=== PATIENT | male | born 1950 | race Caucasian/White ===

== ENCOUNTER 2024-04-13 20:00 | Outpatient (OUT) | payer MEDICARE, SELFPAY | END 2024-04-13 20:01 | disposition home or self-care (01) | LOC: SLEEP 04-15 07:55 | PROVIDERS: PCP Nurse Practitioner Adult Health; Visit Provider Nurse Practitioner Adult Health | DX: G47.33 Obstructive sleep apnea (adult) (pediatric) (principal); R41.89 Other symptoms and signs involving cognitive functions and awareness; G47.10 Hypersomnia, unspecified; G47.30 Sleep apnea, unspecified | CPT/HCPCS: 95810 ==

== ENCOUNTER 2024-06-04 19:41 | Outpatient (OUT) | payer MEDICARE, SELFPAY ==
--- OUTSIDE RECORDS SUMMARY | 2024-06-04 19:44 | XMS_ITS | CCD ---
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 Name Role Phone Shelly Finch MD Primary Care Provider IVY PARSONS I Attending Unavailable SHELLY FINCH Referring Unavailable SHELLY FINCH Primary Care Unavailable IVY PARSONS I Referring Unavailable SHELLY FINCH Primary Care Unavailable Shelly Finch MD Primary Care Provider JOSE CASEY Attending Unavailable RUSLAN VILLATORO Attending Unavailab RUSLAN Farris Referring Unavailab RUSLAN Farris Attending Unavailab RUSLAN Farris Attending Unavailab EMILY Mercedes Attending Unavailable ESTEFANY PRADO Attending Unavailable EMILY SUN Attending Unavailable EMILY SUN Referring Unavailable NELL BOYER Attending Unavailable Allergies Allergy Classification Reported Allergen(s) Allergy Type Date of Onset Reaction(s) Facility (4 sources) Colchicine; Translations: [COLCHICINE] Drug Allergy 08-05-2020 [facility] (6 sources) Colchicine Drug Allergy 01-16-2023 [facility] Work Phone: Medications Current Medications Medication Drug Class(es) Dates Sig (Normalized) Sig (Original) acetaminophen 500 mg oral tablet (2 sources) Start: 08-06-2020 take 2 tablets by mouth every eight hours acetaminophen (TYLENOL) 500 mg tablet Take 2 tablets (1,000 mg total) by mouth every 8 (eight) hours. 30 tablet 0 08/06/2020 Active aspirin 81 mg delayed release oral tablet (6 sources) Platelet Aggregation Inhibitor, Nonsteroidal Anti-inflammatory Drug take 1 tablet by mouth in the morning aspirin 81 MG EC tablet Take 81 mg by mouth in the morning. 0 Active cholecalciferol 0.125 mg oral tablet (2 sources) Vitamin D take 1 tablet by mouth in the morning cholecalciferol, vitamin D3, 5,000 units tablet Take 1 tablet (5,000 Units total) by mouth in the morning. 0 Active fluticasone propionate 0.05 mg/actuat metered dose nasal spray (8 sources) Corticosteroid take 1 spray(s) nasal route in the morning fluticasone (Flonase) 50 MCG/ACT nasal spray Administer 1 spray into affected nostril(s) in the morning. 0 Active take 1 spray(s) nasa l route in the morning fluticasone propionate (FLONASE) 50 mcg/actuation nasal spray Administer 1 spray into each nostril in the morning. 0 Active 1 ml guselkumab 100 mg/ml prefilled syringe (8 sources) Interleukin-23 Antagonist Start: 03-06-2023 Tremfya 100 MG/ML injection Indications: Psoriasis vulgaris (CMS/HCC) INJECT 100MG UNDER THE SKIN AT WEEK 0, WEEK 4, AND EVERY 8 WEEKS THEREAFTER 0.28 mL 0 03/06/2023 Active Start: 11-04-2022 guselkumab (TR EMFYA) 100 mg/mL syringe 1 mL Subcutaneous at week , week 4, and every 8 weeks thereafter 0 11/04/2022 Active ammonium lactate 120 mg/ml topical lotion (4 sources) ammonium lactate (Lac-Hydrin) 12 % lotion 1 Application every 12 (twelve) hours 0 Active lidocaine 0.05 mg/mg medicated patch (2 sources) Antiarrhythmic, Amide Local Anesthetic Start: 08-06-20 apply 1 dose transdermal route once daily, then apply 1 dose transdermal route every twelve hours lidocaine (LIDODERM) 5 % Place 1 patch on the skin daily. Remove & Discard patch within 12 hours or as directed by MD 30 patch 0 08/06/2020 Active losartan potassium 25 mg oral tablet (8 sources) Angiotensin 2 Receptor Hieu take 1 tablet by mouth in the morning losartan (Cozaar) 25 MG tablet Take 25 mg by mouth in the morning. 0 Active metFORMIN hydrochloride 500 mg oral tablet (8 sources) Biguanide take 1 tablet by mouth in the morning metFORMIN (Glucophage) 500 MG tablet Take 500 mg by mouth in the morning and 500 mg in the evening. 0 Active 24 hr mirabegron 50 mg extended release oral tablet (6 sources) beta3-Adrenergic Agonist Start: 03-08-20 take 1 tablet by mouth every twenty-four hours in the morning mirabegron (MYRBETRIQ) 50 mg tablet extended release 24 hr Take 1 tablet (50 mg total) by mouth in the morning. 30 tablet 5 03/08/2023 Active mirabegron ER (M yrbetriq) 50 MG 24 hr tablet 1 (one) time each day at the same time 0 Active montelukast 10 mg oral tablet (8 sources) Leukotriene Receptor Antagonist take 1 tablet by mouth at bedtime montelukast (Singulair) 10 MG tablet Take 10 mg by mouth at bedtime. 0 Active nitrofurantoin, macrocrystals 25 mg / nitrofurantoin, monohydrate 75 mg oral capsule (1 source) Nitrofuran Antibacterial Start: End: take 1 capsule by mouth in the morning nitrofurantoin, macrocrystal-monohyd rate, (Macrobid) 100 MG capsule Indications: Acute cystitis with hematuria Take 1 capsule (100 mg) by mouth in the morning and 1 capsule (100 mg) before bedtime. Do all this for 7 days. 14 capsule 0 10/12/2023 10/19/2023 Active rivaroxaban 20 mg oral tablet (8 sources) Factor Xa Inhibitor take 1 tablet by mouth in the morning rivaroxaban (Xarelto) 20 MG tablet Take 20 mg by mouth in the morning. 0 Active rosuvastatin calcium 40 mg oral tablet (8 sources) HMG-CoA Reductase Inhibitor Start: End: take 1 tablet by mouth once daily rosuvastatin (Crestor) 40 MG tablet Indications: Mixed hyperlipidemia (CMS/HCC) Take 1 tablet (40 mg) by mouth 1 (one) time each day at the same time 90 tablet 0 10/11/2023 01/09/2024 Active sulfamethoxazole 800 mg / trimethoprim 160 mg oral tablet (1 source) Dihydrofolate Reductase Inhibitor Antibacterial, Sulfonamide Antimicrobial Start: End: take 1 tablet by mouth once in the morning sulfamethoxazole-tri methoprim (BACTRIM DS) 800-160 mg per tablet Take 1 tablet by mouth in the morning and 1 tablet before bedtime. Do all this for 7 days. 14 tablet 0 09/06/2023 09/13/2023 Active triamcinolone acetonide 0.80926 mg/mg topical ointment (6 sources) Corticosteroid triamcinolone (Kenalog) 0.025 % ointment 1 application every 12 (twelve) hours. 0 Active Completed/Discontinued Medications Medication Drug Class(es) Dates Sig (Normalized) Sig (Original) Tapinarof (Vtama) 1 % cream (4 sources) End: 10-10-2023 Tapinarof (Vtama) 1 % cream Apply topically. 0 10/10/2023 Discontinued Tapinarof (Vtama ) 1 % cream Apply topically. 0 Active Problems Active Problems Problem Classification Problem Date Documented Da te Episodic/Chronic Cardiac dysrhythmias (8 sources) Paroxysmal atrial fibrillation; Translations: [Paroxysmal atrial fibrillation] Onset: 03-02-2023 03-02-2023 Chronic Diabetes mellitus without complication (8 sources) Type 2 diabetes mellitus without complication; Translations: [Type 2 diabetes mellitus without complications] Onset: 03-02-2023 03-02-2023 Chronic Disorders of lipid metabolism (8 sources) Mixed hyperlipidemia; Translations: [Mixed hyperlipidemia] Onset: 03-02-2023 03-02-2023 Chronic Genitourinary symptoms and ill-defined conditions (13 sources) Urinary incontinence; Translations: [Unspecified urinary incontinence] Onset: 10-19-2022 03-08-2023 Chronic Immunizations and screening for infectious disease (4 sources) Patient encounter status; Translations: [Encounter for immunization] 10-10-2023 Episodic Other diseases of kidney and ureters (2 sources) Renal mass; Translations: [Other specified disorders of kidney and ureter] Onset: 10-19-2022 11-29-2022 Chronic Other inflammatory condition of skin (6 sources) Plaque psoriasis; Translations: [Psoriasis vulgaris] Onset: 03-02-2023 03-02-2023 Chronic Other inflammatory condition of skin (6 sources) Psoriasis vulgaris; Translations: [Psoriasis vulgaris] Onset: 03-02-2023 03-02-2023 Chronic Other inflammatory condition of skin (8 sources) Psoriasis; Translations: [Psoriasis, unspecified] Onset: 03-02-2023 3 Chronic Other inflammatory condition of skin (6 sources) Psoriatic arthritis; Translations: [Arthropathic psoriasis, unspecified] Onset: 03-02-2023 03-02-2023 Chronic Residual codes; unclassified (1 source) Confusional state; Translations: [Disorientation, unspecified] 10-12-2023 Episodic Rheumatoid arthritis and related disease (8 sources) Rheumatoid arthritis; Translations: [Rheumatoid arthritis, unspecified] Onset: 03-02-2023 03-02-2023 Chronic Urinary tract infections (2 sources) Urinary tract infectious disease; Translations: [Urinary tract infection, site not specified] 09-06-2023 Episodic Past or Other Problems Problem Classification Problem Date Documented Da te Episodic/Chronic Genitourinary symptoms and ill-defined conditions (2 sources) Chase hematuria; Translations: [Gross hematuria] Onset: 12-08-2022 12-08-2022 Episodic Mood disorders (4 sources) Mood disorders Onset: 10-10-2023 10-10-2023 Other connective tissue disease (6 sources) Recurrent falls ; Translations: [Repeated falls] Onset: 03-02-2023 03-02-2023 Episodic Other fractures (2 sources) Closed fracture of multiple left ribs; Translations: [Multiple fractures of ribs, left side, initial encounter for closed fracture] Onset: 08-05-2020 08-05-2020 Episodic Other gastrointestinal disorders (8 sources) Slow transit constipation; Translations: [Slow transit constipation] Onset: 03-02-2023 03-02-2023 Episodic Other male genital disorders (2 sources) Scrotal mass; Translations: [Other specified disorders of the male genital organs] Onset: 10-19-2022 03-08-2023 Episodic Results Test Name Value Interpretation Reference Range Facil ity MR BRAIN WO CONTRASTon 04-15 MR BRAIN WO CONTRAST EXAM: MR BRAIN WO CONTRAST History: cognitive impairment Technique: Multiplanar multisequence MRI of the brain was performed without contrast. Comparison: CT brain 04/06/2024 Findings: Areas of hyperintense T2/FLAIR signal within the bilateral supratentorial white matter are nonspecific but are most likely due to chronic small vessel ischemic changes in a patient of this age. Prominence of the sulci and ventricles compatible with moderate generalized parenchymal volume loss. No acute hemorrhage, mass, mass effect, midline shift, or abnormal extra-axial fluid collection. Midline structures are within normal limits. The posterior fossa is within normal limits. There is no diffusion restriction. No susceptibility artifact is identified on the gradient echo sequence. The major intracranial vascular flow voids are maintained. Cranial nerve 7/8 complexes appear grossly unremarkable. Mild paranasal sinus mucosal thickening. The bilateral mastoid air cells are clear. IMPRESSION: No acute intracranial process. Generalized parenchymal volume loss and nonspecific white matter findings most compatible with chronic small vessel ischemic changes in a patient of this age. ELECTRONICALLY SIGNED BY: Jason Monique, DO Normal Not Available Urinalysis macro (dipstick) panel (U)on 10-12-2023 Bilirubin, UA Negative Negative - 4(70) +++ mg/dL [facility] Blood, UA Positive Negative - 50 Mina/mcL [facility] Clarity, UA Cloudy [facility] re Color, UA [place] e Glucose, UA Negative Negative - 1999(110) ++++ mg/dL [facility] Interpretation and review of laboratory results Abnormal [facility] Ketones, UA Negative Negative - 160(16) ++++ mg/dL [facility] Leukocytes, UA Positive Negative - 500+++ Anna/mcL [facility] Nitrite, UA Positive Negative - Positive [facility] pH, UA 5.0 5 - 9 [facility] e Protein, UA Trace Negative - 1999(20) ++++ mg/dL [facility] Spec Grav, UA 1.025 1 - 1.03 [facility] Urobilinogen, UA 0.2 0.2 - 12 mg/dL [facility] Laboratory - Chemistry and C hemistry - challengeon 10-11-2023 Albumin [Mass/Vol] 4.3 g/dL 3.6 - 5.1 g/dL [facility] Albumin/Globulin [Mass ratio] 1.5 {ratio} [facility] ALP [Catalytic activity/Vol] 68 U/L 35 - 144 U/L [facility] ALT [Catalytic activity/Vol] 13 U/L 9 - 46 U/L [facility] AST [Catalytic activity/Vol] 16 U/L 10 - 35 U/L [facility] Bilirubin [Mass/Vol] 0.6 mg/dL 0.2 - 1.2 mg/dL [facility] Calcium [Mass/Vol] 9.7 mg/dL 8.6 - 10. 3 mg/dL [facility] Chloride [Moles/Vol] 104 mmol/L 98 - 110 mmol/L [facility] CO2 [Moles/Vol] 25 mmol/L 20 - 32 mmol/L [facility] Creatinine [Mass/Vol] 1.05 mg/dL 0.70 - 1.28 mg/dL [facility] GFR/1.73 sq M.predicted among non-blacks MDRD (S/P/Bld) [Vol rate/Area] 74 mL/min/{1.73_m2} > OR = 60 mL/min/1.73m2 [facility] Globulin (S) [Mass/Vol] 2.9 g/dL [facility] Glucose [Mass/Vol] 84 mg/dL 65 - 99 mg/dL [facility] Comment on above: Fasting reference interval Potassium [Moles/Vol] 4.3 mmol/L 3.5 - 5.3 mmol/L [facility] Protein [Mass/Vol] 7.2 g/dL 6.1 - 8.1 g/dL [facility] Sodium [Moles/Vol] 141 mmol/L 135 - 146 mmol/L [facility] TSH Qn 1.79 m[IU]/L [facility] Urea nitrogen [Mass/Vol] 15 mg/dL 7 - 25 mg/dL [facility] Urea nitrogen/Creatinine [Mass ratio] SEE NOTE: [facility] Comment on above: Not Reported: BUN an d Creatinine are within reference range. Prostate specific Ag [Mass/Vol] 4.77 ng/mL High < OR = 4.00 [facility] Comment on above: The total PSA value from this assay system is standardized against the WHO standard. The test result will be approximately 20% lower when compared to the equimolar-standardized total PSA (Kriss Whitefield). Comparison of serial PSA results should be interpreted with this fact in mind. This test was performed using the Siemens chemiluminescent method. Values obtained from different assay methods cannot be used interchangeably. PSA levels, regardless of value, should not be interpreted as absolute evidence of the presence or absence of disease. Laboratory - Hematology and Cell countson 10-11-2023 HbA1c (Bld) [Mass fraction] 5.7 % High [facility] Comment on above: For someone without known diabetes, a hemoglobin A1c value between 5.7% and 6.4% is consistent with prediabetes and should be confirmed with a follow-up test. For someone with known diabetes, a value <7% indicates that their diabetes is well controlled. A1c targets should be individualized based on duration of diabetes, age, comorbid conditions, and other considerations. This assay result is consistent with an increased risk of diabetes. Currently, no consensus exists regarding use of hemoglobin A1c for diagnosis of diabetes for children. HbA1c performed on Susy platform. Effective 08/15/23 a change in test platforms may have shifted HbA1c results compared to historical results. Lipid 1996 panelon 4 Cholesterol [Mass/Vol] 216 mg/dL High [facility] - 200 mg/dL [facility] Cholesterol in HDL [Mass/Vol] 33 mg/dL Low > OR = 40 [facility] Cholesterol in LDL [Mass/Vol] 155 mg/dL High mg/dL (calc) [facility] Comment on above: Reference range: <10 0 Desirable range <100 mg/dL for primary prevention; <70 mg/dL for patients with CHD or diabetic patients with > or = 2 CHD risk factors. LDL-C is now calculated using the Luis-Hinojosa calculation, which is a validated novel method providing better accuracy than the Friedewald equation in the estimation of LDL-C. Luis SS et al. RICCO. 2013;310(19): 9734-2575 (http://education.Root4.CloudSponge/faq/VKW549) Cholesterol non HDL [Mass/Vol] 183 mg/dL High [facility] Comment on above: For patients with di abetes plus 1 major ASCVD risk factor, treating to a non-HDL-C goal of <100 mg/dL (LDL-C of <70 mg/dL) is considered a therapeutic option. Cholesterol.total/Ch olesterol in HDL [Mass ratio] 6.5 {ratio} High [facility] Triglyceride [Mass/Vol] 149 mg/dL [facility] - 150 mg/dL [facility] Microalbumin/Creatinine rati o panel (U)on 10-11-2023 Albumin DL <= 20 mg/L (U) [Mass/Vol] 2.1 mg/dL See Note: [facility] are Comment on above: Reference Range: Reference Range Not established Albumin/Creatinine (U) [Mass ratio] 13 [facility] Comment on above: The ADA defines abnormalities in albumin excretion as follows: Albuminuria Category Result (mcg/mg creatinine) Normal to Mildly increased <30 Moderately increased 30-299 Severely increased > OR = 300 The ADA recommends that at least two of three specimens collected within a 3-6 month period be abnormal before considering a patient to be within a diagnostic category. Creatinine (U) [Mass/Vol] 157 mg/dL 20 - 320 mg/dL [facility] SPLIT 10/10/2023 FROM [id number] [employer] Organization Information Site ID: QPT Name: [facility] [employer] [facility] Address: [address] [place] [address], [address] [place] [address] Director: Charlie Wilde MD [facility] [facility] No Panel Informationon 10-11 Interpretation and review of laboratory results Abnormal [facility] PATIENT UNABLE TO VOID; ADVISED TO RETURN FOR COLLECTION. [employer] Organization Information Site ID: QPT Name: [employer] [facility] Address: [address] [place] [address], [address] [place] [address] Director: Charlie Wilde MD [facility] [employer] e POCT Urinalysis Auto, W/O Mi croscopyon 09-06-2023 External Poct Urine Blood Negative [facility] External Poct Urine Glucose Negative [facility] External Poct Urine Ketones Negative [facility] External Poct Urine Leukocyte Esterase Moderate [facility] External Poct Urine Nitrite Positive [facility] External Poct Urine Ph 7.0 [facility] External Poct Urine Protein Trace [facility] URINE CULTUREon 09-06-2023 Bacteria identified Cx Nom (U) CULTURE RESULTS >100,000 ORGANISMS/mL ESCHERICHIA COLI Organism: ESCHERICHIA COLI Antibiotic Interpretation GELY Status AMPICILLIN S <=2 F AMP/SULBACTAM S <=2/1 F CEFAZOLIN S <=4 F CEFTRIAXONE S <=1 F CIPROFLOXACIN S <=0.25 F GENTAMICIN S <=1 F LEVOFLOXACIN S <=0.12 F NITROFURANTOIN S <=16 F PIPERACIL/TAZOBACTAM S <=4 F TOBRAMYCIN S <=1 F TRIMETH/SULFAMETHOXA ZOLE S <=/19 F Susceptible [facility] Comment on above: Performed By: #### 6 30-4 #### [facility] ([id number]) [address] [place] [address] Microalbumin (with Creat)on 01-27-2022 mALB <1.[address] [facility] Comment on above: Result Comment: Unab le to calculate mALB/Crea ratio, mALB is <1.2 mg/dL mALB reference range not established. Performed By: #### m ALBC #### [facility] [address] [place], [place] [id number] UCREA 34 mg/dL Low 39-259 [facility] Comment on above: Performed By: #### m ALBC #### [facility] [address] [place], [place] [id number] Vital Signs Date Time Vital Sign Value Performing Clinician Leanna dunaway 10-10-2023 12:26-0500 Diastolic blood pressure 68 mm[Hg] Jose Casey JEWELRY ENAMELER Work Phone: [facility] 10-10-2023 12:26-0500 Systolic blood pressure 140 mm[Hg] Jose Casey JEWELRY ENAMELER Work Phone: [facility] 10-10-2023 11:59-0500 Body height 175.3 cm Jose Casey JEWELRY ENAMELER Work Phone: [facility] 10-10-2023 11:59-0500 Body mass index (BMI) [Ratio] 38.16 kg/m2 Jose Casey JEWELRY ENAMELER Work Phone: [facility] 10-10-2023 11:59-0500 Body weight 117.21 kg Jose Casey JEWELRY ENAMELER Work Phone: [facility] 10-10-2023 11:59-0500 Heart rate 88 /min Jose Casey JEWELRY ENAMELER Work Phone: [facility] 10-10-2023 11:59-0500 SaO2% (BldA) [Mass fraction] 96 % Jose Casey JEWELRY ENAMELER Work Phone: [facility] 09-06-2023 10:22-0500 Body height 177.8 cm Ivy PEREZ Work Phone: [employer] 09-06-2023 10:22-0500 Body mass index (BMI) [Ratio] 34.87 kg/m2 Ivy PEREZ Work Phone: [employer] 09-06-2023 10:22-0500 Body weight 110.22 kg [facility] 09-06-2023 10:22-0500 Diastolic blood pressure 75 mm[Hg] Ivy PEREZ Work Phone: [employer] 09-06-2023 10:22-0500 Heart rate 75 /min Ivy PEREZ Work Phone: [employer] 09-06-2023 10:22-0500 Systolic blood pressure 157 mm[Hg] Ivy PEREZ [facility] Phone: [facility] Encounters Encounter Date Encounter Type Care Provider Facility Start: 05-09-2024 End: 05-09-2024 ambulatory NELL BOYER Not Available Start: 04-15-2024 End: 04-15-2024 ambulatory EMILY C WINDNAGEL Not Available Start: 04-03-2024 End: 04-03-2024 ambulatory EMILY C WINDNAGEL Not Available Start: 04-02-2024 End: 04-02-2024 ambulatory JOSE MCDONALDPFER Not Available Start: 03-11-2024 End: 03-11-2024 ambulatory ESTEFANY PRADO Not Available Start: 03-07-2024 End: 03-07-2024 ambulatory EMILY C WINDNAGEL Not Available Start: 02-20-2024 End: 02-20-2024 ambulatory RUSLAN A HACKENBURG Not Available Start: 01-12-2024 End: 01-12-2024 ambulatory RUSLAN A HACKENBURG Not Available Start: 01-05-2024 End: 01-05-2024 ambulatory RUSLAN A HACKENBURG Not Available Start: 01-02-2024 End: 01-02-2024 ambulatory RUSLAN A HACKENBURG Not Available Start: 10-12-2023 End: 10-12-2023 Orders Only Ruslan Gilman Irving JEWELRY ENAMELER Work Phone: [facility] Comment on above: Acute cystitis with hematuria (Primary Dx) Start: 10-12-2023 End: 10-12-2023 Patient encounter procedure [facility] Comment on above: Confusion Start: 10-10-2023 Bamboo flowsheet Jose Casey JEWELRY ENAMELER Work Phone: [facility] Start: 10-10-2023 Bamboo flowsheet Jose Casey JEWELRY ENAMELER Work Phone: [facility] Start: 10-10-2023 End: 10-10-2023 Patient encounter procedure Jose Carmela JEWELRY ENAMELER Work Phone: [facility] Comment on above: Encounter for wellne ss examination (Primary Dx); Controlled type 2 diabetes mellitus without complication, without long-term current use of insulin (CMS/HCC); Functional urinary incontinence; Constipation by delayed colonic transit; Mixed hyperlipidemia (CMS/HCC); Paroxysmal atrial fibrillation (CMS/HCC); Screening PSA (prostate specific antigen); Psoriasis (CMS/HCC); Rheumatoid arthritis, involving unspecified site, unspecified whether rheumatoid factor present (CMS/HCC); Encounter for immunization Start: 10-10-2023 End: 10-10-2023 Patient encounter status Jose Carmela JEWELRY ENAMELER Work Phone: [facility] Work Phone: Start: 10-10-2023 End: 10-10-2023 ambulatory JOSE CARMELA Not Available Start: 10-09-2023 Chart abstracting Jose jo JEWELRY ENAMELER Work Phone: [facility] Start: 09-06-2023 End: 09-07-2023 ambulatory IVY PARSONS [facility] Start: 09-06-2023 End: 09-06-2023 ambulatory IVY PARSONS [facility] Start: 09-06-2023 End: 09-06-2023 Office outpatient visit 25 minutes Ivy Parsons PA Work Phone: [facility] Comment on above: Urinary incontinence , unspecified type (Primary Dx); Urinary tract infection without hematuria, site unspecified Start: 09-05-2023 Orders Only Ivy louise PA Work Phone: [facility] Start: 08-15-2023 End: 08-15-2023 ambulatory JOSE MCDONALDCHARLOTTE Not Available Procedures Date Procedure Procedure Detail Performing Clinician Start: 10-12-2023 Urnls dip stick/tabl et rgnt non-auto w/o micrscp Ruslan Villatoro JEWELRY ENAMELER Work Phone: Start: 10-10-2023 Urine albumin quantitative Jose Mcdonaldcharlotte JEWELRY ENAMELER Work Phone: Start: 10-10-2023 End: 10-10-2023 Comprehensive metabolic panel Jose Carmela JEWELRY ENAMELER Work Phone: Start: 10-10-2023 Lipid panel Jose Mcdonaldmaddie chaudhry JEWELRY ENAMELER Work Phone: Start: 10-10-2023 TSH W/REFLEX TO FT4 Luisa Mcdonaldcharlotte JEWELRY ENAMELER Work Phone: Start: 09-06-2023 Follow-up visit Follow-up ZBIGNIEW PARSONS Start: 09-06-2023 Urnls dip stick/tabl et rgnt auto w/o microscopy Ivy Parsons PA Work Phone: Start: 10-18-2012 Colonoscopy Jose Carissa chaudhry JEWELRY ENAMELER Work Phone: Plan of Treatment Date Care Activity Detail Author Start: 10-10-2024 Medicare Annual Well ness (AWV) Medicare Annual Wellness (AWV) [facility] Start: 10-10-2024 Urine screening for protein Diabetes: Urine Protein Screening [facility] Start: 09-06-2024 Adult BMI Screening Adult BMI Screen ing [facility] Start: 09-06-2024 Tobacco Screening Tobacco Screening [facility] Start: 03-08-2024 Adult BMI Screening Adult BMI Screen ing [facility] Start: 03-08-2024 Tobacco Screening Tobacco Screening [facility] Start: 03-07-2024 End: 03-07-2024 Patient encounter procedure 03/07/2024 9:20 AM EDT Office Visit [facility] [address] [place] [id number] Nell Boyer APRN-[employer] NANNY [address] [place] [address] [facility] Start: 01-08-2024 Hemoglobin A1c measurement Diabetes: Hemoglobin A1C [facility] Start: 12-05-2023 End: 12-05-2023 Patient encounter procedure 12/05/2023 11:15 AM EDT Office Visit [facility] [address] [place] [address] [place] [address] Jarod Pedersen MD [address] [place] [address] [phone] [facility] Start: 10-12-2023 End: 10-12-2024 Bacteria identified in Urine by Culture Urine culture (clean catch) Microbiology Routine Confusion Expected: 10/12/2023 (Approximate), Expires: 10/12/2024 [facility] Work Phone: Comment on above: Expected: 10/12/2023 (Approximate), Expires: 10/12/2024 Start: 10-10-2023 End: 10-10-2023 Patient encounter procedure [facility] Comment on above: Arrived Start: 09-06-2023 End: 09-06-2023 Patient encounter procedure 09/06/2023 10:30 AM EST Office Visit [facility] [address] [place] [address] [place] [address] Ivy Parsons PA [address] [place] [address] [phone] [facility] Start: 04-28-2023 COVID-19 Vaccine () COVID-19 Vaccine () [facility] Start: 04-28-2023 Influenza vaccination [facility] Start: 01-27-2023 Urine screening for protein Diabetes: Urine Protein Screening [facility] Start: 11-30-2022 Hemoglobin A1c measurement Diabetes: Hemoglobin A1C [facility] Start: 10-18-2022 Screening for malign ant neoplasm of colon [facility] Start: 2013 Fall Risk Screening Fall Risk Screen ing [facility] Start: 1998 Administration of varicella zoster vaccine Zoster (Shingles) Vaccine (1 of 2) [facility] Start: 1967 DTaP,Tdap and Td Vac cines (1 - Tdap) DTaP,Tdap and Td Vaccines (1 - Tdap) [facility] Start: 1966 Adult BMI Follow Up Plan Adult BMI Follow Up Plan [facility] Start: 1960 Depression Screening Depression Scre ening [facility] Start: 1958 Glaucoma screening Diabetes: R etinopathy Screening [facility] Start: 1954 Pneumococcal Vaccine : 65+ Years (1 - PCV) Pneumococcal Vaccine: 65+ Years (1 - PCV) [facility] Start: 1948 Medicare Annual Well ness (AWV) Medicare Annual Wellness (AWV) [facility] Start: 1948 Medicare Annual Well ness Visit Medicare Annual Wellness Visit [facility] Start: 1950 Screening for malign ant neoplasm of colon [facility] End: 09-05-2024 Bacteria identified in Urine by Culture Urine Culture Microbiology Routine Urinary incontinence, unspecified type 1 Occurrences starting 09/06/2023 until 09/05/2024 [facility] Work Phone: Comment on above: 1 Occurrences starti ng 09/06/2023 until 09/05/2024 Bacteria identified in Urine by Culture Urine Culture Microbiology Routine Urinary incontinence, unspecified type 09/06/2023 7:43 PM EST [facility] Measure post void residual Measure post void residual Nursing Routine Urinary incontinence, unspecified type 09/06/2023 10:32 AM EST [facility] [employer] Immunizations Immunization Date Immunization Notes Care Provider Snow mccoy 10-10-2023 influenza, high dose seasonal, preservative-free Jose Kampfer JEWELRY ENAMELER Work Phone: [facility] 10-10-2023 Pneumococcal Conjuga te PCV 20 Jose Casey JEWELRY ENAMELER Work Phone: [facility] 09-01-2022 influenza, injectabl e, quadrivalent, preservative free Jose Casey JEWELRY ENAMELER Work Phone: [facility] 09-01-2022 influenza virus vaccine, unspecified formulation Ivy PEREZ Work Phone: [facility] 01-18-2021 COVID-19, mRNA, LNP- S, PF, 100mcg/0.5mL Dose Ivy PEREZ Work Phone: [facility] 12-21-2020 COVID-19, mRNA, LNP- S, PF, 100mcg/0.5mL Dose Ivy PEREZ Work Phone: [facility] 06-03-2009 influenza virus vaccine, whole virus Jose Casey JEWELRY ENAMELER Work Phone: [facility] Payers Date Payer Category Payer Medicare [id number] 2017 Medicare [id number] 1950 Unknown [id number] 2.16.84 [id number] 1950 Unknown [id number] 2.16.84 [id number] 1950 Unknown [id number] 2.16.84 [id number] 1950 Unknown [id number] 2.16.84 0.1.262537.3.579.2.1259 1950 Unknown [id number] 2.16.84 0.1.764883.3.579.2.1259 1950 Unknown [id number] 2.16.84 0.1.438011.3.579.2.1259 1950 Unknown [id number] 2.16.84 0.1.254105.3.579.2.9 1950 Unknown [id number] 2.16.84 0.1.301513.3.579.2.9 1950 Unknown [id number] 2.16.84 0.1.709202.3.579.2.1258 1948 Unknown [id number] 2.16.84 0.1.862368.3.579.2.9 1948 Unknown [id number] 2.16.84 0.1.351085.3.579.2.1258 1950 Unknown [id number] 2.16.84 0.1.235838.3.579.2.9 1948 Unknown [id number] 2.16.84 0.1.946847.3.579.2.1258 1950 Unknown [id number] 2.16.84 [id number] 1950 Unknown [id number] 2.16.840 .[id number] Social History Date Type Detail Facility Start: 10-19-2022 End: 03-03-2023 Tobacco smoking status NHIS Ex-smoker [facility] History of tobacco use Current smoker [facility] Start: 10-19-2022 Tobacco use and exposure Smoke less tobacco non-user [facility] Start: 03-08-2023 End: 09-06-2023 Alcohol intake Current drinker of alcohol (finding) [facility] Start: 03-08-2023 End: 10-10-2023 History of Social function [facility] Start: 03-08-2023 End: 10-10-2023 Tobacco use panel [facility] Housing Instability Unknown [facility] Start: 1950 Sex Assigned At Not on file [facility] History of tobacco use Cigarette Smoker [facility] Start: 03-06-2023 End: 10-10-2023 Alcohol intake Lifetime non-drinker (finding) [facility] Start: 03-03-2023 Alcohol Comment Caffeine: 1-2 cups/day coffee [facility] Goals Date Patient Goal Desired Activity /State Personal health goal Comment on above: Formatting of this n ote might be different from the original. Evaluation of progress towards goal: To be discharged home with family support. Clinical Notes 09-06-2023 to 01-05-2024 Dalila Stack MA - 10/12/2023 8:45 AM Sussy Casey NP - 10/10/2023 12:00 PM ESTAssessment & Plan Note - CHRIS Rivera - 09/06/2023 12:48 PM ESTPatient Instructions Note Date & Type Note Facility 01-05-2024 Note PROCEDURE: Without IV contrast, images of the brain were performed FINDINGS: Diffuse loss of brain volume. Normal ventricular prominence commensurate with the cerebral sulci. No intracranial hemorrhage, acute or subacute major vessel ischemia. Moderate subcortical and periventricular white matter hypodense areas consistent with small vessel ischemic sequela. Normal mastoid air cells, tympanic cavities, and paranasal sinuses. Normal nasopharyngeal soft tissues IMPRESSION: 1. Diffuse loss of brain volume, small vessel ischemic changes 2. No intracranial hemorrhage, acute or subacute major vessel ischemia TRANSCRIBED BY: ELECTRONICALLY SIGNED BY: Benjamin Palafox MD Not Available 10-12-2023 History of Presen t illness Narrative Pt came into the office to give a urine sample. documented in this encounter [facility] 10-10-2023 History of Presen t illness Narrative Nico Fajardo is a 73 y.o. male presents with chief complaint of Medicare Annual Wellness Visit Subsequent HPI: Patient is here for medicare wellness. He does have concerns of his left knee, states it has been acting up in July. Has trouble getting up, comes and goes. He is unsure of what medications he is taking, not sure if he is taking losartan, and myrbetriq. Says his fills his weekly prescriptions for him. Used Ring, house and orange as medicare questions. Over the past 2 weeks, how often have you been bothered by any of the following problems? Little interest or pleasure in doing things: Not at all Feeling down, depressed, or hopeless: Not at all Patient Health Questionnaire-2 Score: 0 Over the past 2 weeks, how often have you been bothered by any of the following problems? Trouble falling or staying asleep, or sleeping too much: Several days Feeling tired or having little energy: Several days Poor appetite or overeating: Several days Feeling bad about yourself - or that you are a failure or have let yourself or your family down: Not at all Trouble concentrating on things, such as reading the newspaper or watching television: Several days Moving or speaking so slowly that other people could have noticed? Or the opposite - being so fidgety or restless that you have been moving around a lot more than usual.: Several days Thoughts that you would be better off or hurting yourself in some way: Not at all Patient Health Questionnaire-9 Score: 5 Brewer Fall Risk History of Falling, Immediate or Within 3 Months: Yes (fell and hit his face on couch.) Health Risk Assessment Form Do you need help eating, bathing, using the toilet, dressing, or getting around your home?: Yes Can you prepare your own meals?: Yes Can you do your own housework without help?: Yes Can you shop for groceries or clothes without help?: Yes Do you exercise for about 20 minutes 3 or more days a week?: No How confident are you that you can control and manage most of your health problems?: Somewhat confident Can you mange your money, credit cards and accounts, pay bills and taxes?: Yes Cognitive Screening Three Word Registration: Apple, Watch, Karly Clock Drawing: Normal Clock - 2 Three Word Recall: 2/3 words correct - 2 Total Score (0-5 Points): 4 Pain Assessment Pain Score: 2 SUBJECTIVE: MEDICATIONS: Current Outpatient Medications Medication Instructions ammonium lactate (Lac-Hydrin) 12 % lotion 1 Application, Every 12 hours fluticasone (Flonase) 50 MCG/ACT nasal spray 1 spray, Nasal, Daily RT losartan (COZAAR) 25 mg, Oral, Daily RT metFORMIN (GLUCOPHAGE) 500 mg, Oral, 2 times daily mirabegron ER (Myrbetriq) 50 MG 24 hr tablet Every 24 hours montelukast (SINGULAIR) 10 mg, Oral, Nightly rivaroxaban (XARELTO) 20 mg, Oral, Daily RT rosuvastatin (Crestor) 40 MG tablet Every 24 hours Tremfya 100 MG/ML injection INJECT 100MG UNDER THE SKIN AT WEEK 0, WEEK 4, AND EVERY 8 WEEKS THEREAFTER triamcinolone (Kenalog) 0.025 % ointment 1 application , Every 12 hours REVIEW OF SYMPTOMS: Review of Systems Constitutional: Negative. HENT: Negative. Eyes: Negative. Respiratory: Negative. Cardiovascular: Negative. Gastrointestinal: Negative. Genitourinary: Negative. Musculoskeletal: Negative. Skin: Negative. Neurological: Negative. OBJECTIVE: Visit Vitals BP 140/68 (BP Location: Left arm, Patient Position: Sitting, BP Cuff Size: Large adult) Pulse 88 Ht 5' 9 Wt 258 lb 6.4 oz SpO2 96% BMI 38.16 kg/m Smoking Status Former BSA 2.39 m Physical Exam Vitals reviewed. Constitutional: Appearance: He is obese. HENT: Head: Normocephalic and atraumatic. Right Ear: Tympanic membrane normal. Left Ear: Tympanic membrane normal. Nose: Nose normal. Mouth/Throat: Mouth: Mucous membranes are moist. Eyes: Extraocular Movements: Extraocular movements intact. Pupils: Pupils are equal, round, and reactive to light. Cardiovascular: Rate and Rhythm: Normal rate and regular rhythm. Pulses: Normal pulses. Heart sounds: Normal heart sounds. Pulmonary: Effort: Pulmonary effort is normal. Breath sounds: Normal breath sounds. Abdominal: General: Abdomen is flat. Bowel sounds are normal. Palpations: Abdomen is soft. Musculoskeletal: General: Normal range of motion. Cervical back: Normal range of motion and neck supple. Right lower leg: No edema. Left lower leg: No edema. Skin: General: Skin is warm and dry. Capillary Refill: Capillary refill takes less than 2 seconds. Findings: No rash. Neurological: General: No focal deficit present. Mental Status: He is alert and oriented to person, place, and time. Psychiatric: Mood and Affect: Mood normal. Behavior: Behavior normal. Thought Content: Thought content normal. Judgment: Judgment normal. ASSESSMENT AND PLAN: Assessment/Plan Diagnoses and all orders for this visit: Encounter for wellness examination - Lipid panel; Future - TSH W/REFLEX TO FT4; Future - Comprehensive metabolic panel; Future - Hemoglobin A1c; Future - Microalbumin / creatinine, urine ratio; Future -Discussed height, weight and BMI. Encouraged healthy diet and regular exercise. Discussed vaccines and encouraged yearly flu shot. Annual eye and dental exam. Vaccines and cancer screens reviewed for completeness. Screen labs as needed. Assessed needs for tools in the home for independence. Living will and durable power of contracts attorney reviewed. Updated patient problem list and reviewed all current medications with patient. Given time to ask questions. Controlled type 2 diabetes mellitus without complication, without long-term current use of insulin ([facility]) - Lipid panel; Future - Comprehensive metabolic panel; Future - Hemoglobin A1c; Future - Microalbumin / creatinine, urine ratio; Future, -Diabetic protocols reviewed. Discussed and updated current management plan. Addressed barriers to care, diet, exercise plan and blood sugar testing. Education provided for medications. Goal A1C <7 and BP <130/80 for suboptimally controlled diabetes. I have encouraged patient to check feet regularly and to see ophthomololgist annually. I have discussed the need for regular testing and follow up. We will recheck an A1C every 3 months and microalbumin yearly. Discussed complications which could include blindness, heart disease and kidney disease. Functional urinary incontinence -Stable. Followed by urology Constipation by delayed colonic transit -Stable Mixed hyperlipidemia ([facility]) - Lipid panel; Future -Check lipid panel Paroxysmal atrial fibrillation ([facility]) -Stable. On xarelto Screening PSA (prostate specific antigen) - PSA; Future Psoriasis ([facility]) -Followed by dermatology Rheumatoid arthritis, involving unspecified site, unspecified whether rheumatoid factor present ([facility]) -Hx. Of this, but stable, on no meds. Encounter for immunization - Flu vaccine, high dose seasonal, PF (SGV886) (Fluzone High Dose) - Pneumococcal conjugate vaccine 20-valent IM documented in this encounter [facility] 09-06-2023 Evaluation + Plan note Associated Problem(s): Urinary incontinence UA is suggestive of infection. We will send for culture. I sent in a prescription for Bactrim. We will only call him if the culture is negative or if we need to change antibiotics. He will watch to see if he has any improvement in his frequency when the infection is treated. He will let me know if he wants to try an anticholinergic, otherwise we will see him back in 2 or 3 months to recheck his urine and determine further management [facility] 09-06-2023 Miscellaneous Notes Associated Problem(s): Urinary incontinence UA is suggestive of infection. We will send for culture. I sent in a prescription for Bactrim. We will only call him if the culture is negative or if we need to change antibiotics. He will watch to see if he has any improvement in his frequency when the infection is treated. He will let me know if he wants to try an anticholinergic, otherwise we will see him back in 2 or 3 months to recheck his urine and determine further management documented in this encounter [facility] 09-06-2023 History of Presen t illness Narrative Images from the original note were not included. [address] [place] [address] [address] [facility] [id number] Patient: Nico Fajardo Date of : 1950 Encounter Date: 09/06/2023 History of Present Illness: The patient is a 73 y.o. male, an established patient, and is here for follow-up. Please see his history below. The Myrbetriq was too expensive so he did not continue taking it. His feels he voids more than he should. He also has issues with enuresis. Recently his urine has had an odor. He reports that his stream is fine. He denies any dysuria, gross hematuria, or fever. Postvoid residual as measured by bladder scan is 61 cc Summary of old records: Notes from pa 03/08/2023: He is status post cystoscopy 01/24/2023 for further evaluation of gross hematuria he developed after starting Myrbetriq 25mg. Did have some gross hematuria after the cystoscopy but this has since resolved. He estimates 50% improvement in his symptoms with Myrbetriq. Postvoid residual as measured by bladder scan is 42 cc's Summary of old records: Notes from Dr. Pedersen 11/29/22: he patient is a 72 y.o. male, an established patient, and is here for followup. He was referred here from his PCP for incontinence. UA on 09/01/2022 showed moderate leukocytes, trace blood and dipped positive for nit. He has had issues with incontinence and enuresis for the past 2 years. He goes through 2 briefs a day. They are usually just a little wet. He denies any stress incontinence. He does have some frequency and occasional urgency and urge incontinence. He drinks one cup of coffee a day and no other caffeine. He really does not drink too many fluids. He denies any gross hematuria. He denies any dysuria. He reports that his stream is fair. PVR was 16cc. Urine culture was negative 11/16/22. He tried myrbetriq 25 mg. No real improvement with that. He developed gross hematuria while using the Myrbetriq. He has a history of a CT done on 08/05/2020 which showed a 2 cm lesion of the left kidney. CT renal mass protocol was advised for further characterization but not done. He had this done 11/22/22 showing this lesion is only a renal cyst. That CT was done with and without contrast but included only the abdomen. There was no evidence of stones or hydronephrosis. He also had a lesion on exam in the scrotum. U/S showed bilateral hydroceles, no masses. Urinalysis today: Recent Labs 09/06/23 1040 EXTPOCURBS Negative EXTPOCUKET Negative EXTPOCUPRO Trace EXTPOCUNIT Positive EXTPOCUBLD Negative EXTPOCUPH 7.0 Last BUN and creatinine: Lab Results Component Value Date BUN 9 06/02/2021 Lab Results Component Value Date CREATININE 0.99 11/22/2022 Past Medical, Family, and Social History Update: The following portions of the patient's history were reviewed and updated as appropriate: allergies, current medications, past family history, past medical history, past social history, past surgical history and problem list. Past Medical History: Diagnosis Date Arthritis Atrial fibrillation Hypertension Past Surgical History: Procedure Laterality Date APPENDECTOMY CYSTOSCOPY N/A 01/24/2023 Performed by Jarod Pedersen MD at [facility] History reviewed. No pertinent family history. Current Outpatient Medications Medication Sig Dispense Refill acetaminophen (TYLENOL) 500 mg tablet Take 2 tablets (1,000 mg total) by mouth every 8 (eight) hours. 30 tablet 0 aspirin 81 mg Take 1 tablet (81 mg total) by mouth in the morning. fluticasone propionate (FLONASE) 50 mcg/actuation nasal spray Administer 1 spray into each nostril in the morning. guselkumab (TREMFYA) 100 mg/mL syringe 1 mL Subcutaneous at week , week 4, and every 8 weeks thereafter rivaroxaban (XARELTO) 20 mg tablet tablet Take 1 tablet (20 mg total) by mouth in the morning. rosuvastatin (CRESTOR) 40 mg tablet Take 1 tablet (40 mg total) by mouth in the morning. Pt states he takes this for 2 days then on the 3rd day he holds dose and repeats this schedule. Per pt he states that his Family Physician is aware.. cholecalciferol, vitamin D3, 5,000 units tablet Take 1 tablet (5,000 Units total) by mouth in the morning. (Patient not taking: Reported on 03/08/2023) lidocaine (LIDODERM) 5 % Place 1 patch on the skin daily. Remove & Discard patch within 12 hours or as directed by MD (Patient not taking: Reported on 03/08/2023) 30 patch 0 losartan (COZAAR) 25 mg tablet Take 1 tablet (25 mg total) by mouth in the morning. (Patient not taking: Reported on 03/08/2023) metFORMIN (GLUCOPHAGE) 500 mg tablet Take 1 tablet (500 mg total) by mouth in the morning and 1 tablet (500 mg total) before bedtime. (Patient not taking: Reported on 09/06/2023) mirabegron (MYRBETRIQ) 50 mg tablet extended release 24 hr Take 1 tablet (50 mg total) by mouth in the morning. (Patient not taking: Reported on 09/06/2023) 30 tablet 5 montelukast (SINGULAIR) 10 mg tablet Take 1 tablet (10 mg total) by mouth nightly. (Patient not taking: Reported on 03/08/2023) sulfamethoxazole-trimethoprim (BACTRIM DS) 800-160 mg per tablet Take 1 tablet by mouth in the morning and 1 tablet before bedtime. Do all this for 7 days. 14 tablet 0 No current facility-administered medications for this visit. (All medications reviewed and updated by provider since last office visit or hospitalization) Allergies: Colchicine Tobacco History: Social History Tobacco Use Smoking Status Former Smokeless Tobacco Never (If patient a smoker, smoking cessation counseling offered) Social History: Social History Substance and Sexual Activity Alcohol Use Yes Review of Systems: General: Negative for chills and fever. Cardiovascular: Negative for chest pain and shortness of breath. Gastrointestinal: Positive for constipation Physical Exam: BP 157/75 Pulse 75 Ht 177.8 cm (5' 10 ) Wt 110.2 kg (243 lb) BMI 34.87 kg/m Constitutional: He appears well-developed. No distress. Pulmonary/Chest: Effort normal. No respiratory distress. Neurological: He is alert and oriented for age. Gait normal. Nursing note and vitals reviewed. Assessment and Plan: Nico was seen today for follow-up. Diagnoses and all orders for this visit: Urinary incontinence, unspecified type - Measure post void residual - POCT Urinalysis Auto, W/O Microscopy - Urine Culture; Future Urinary tract infection without hematuria, site unspecified Other orders - sulfamethoxazole-trimethoprim (BACTRIM DS) 800-160 mg per tablet; Take 1 tablet by mouth in the morning and 1 tablet before bedtime. Do all this for 7 days. Problem List Genitourinary Urinary incontinence - Primary Overview 10/19/22: 2 years of incontinence and enuresis. Some frequency and urgency. Occasionally incontinence is without sensation. PVR 16. UA today dips for blood. We will check for microscopic exam and go forward with cystoscopy if positive for blood. He is interested in a trial of Myrbetriq 25mg 11/03/22: Ua showed 4 RBCs and 3 WBCs, waiting for him to drop off urine for culture 11/17/22: C&S negative. Will recheck UA at follow-up. Cystoscopy may be needed 11/29/22: CT showing no upper tract pathology, C&S negative. No improvement with Myrbetriq 25 mg. Plan for cysto given gross hematuria. Repeat urine culture Urine culture positive for pansensitive E coli 01/24/23: Cysto with BPH. Repeat urine culture. Samples Myrbetriq 50 mg 03/08/23: 50% improvement with Myrbetriq 50mg. PVR 42. Content with current state 09/06/23: Myrbetriq too expensive. Persistent frequency and enuresis but he is not bothered by this. He will let me know if he wants to try an anticholinergic. Urine for culture. Current Assessment & Plan UA is suggestive of infection. We will send for culture. I sent in a prescription for Bactrim. We will only call him if the culture is negative or if we need to change antibiotics. He will watch to see if he has any improvement in his frequency when the infection is treated. He will let me know if he wants to try an anticholinergic, otherwise we will see him back in 2 or 3 months to recheck his urine and determine further management Relevant Orders Measure post void residual POCT Urinalysis Auto, W/O Microscopy (Completed) Urine Culture CHRIS RIVERA This note was created with the assistance of a speech recognition program. While intending to generate a timely document that accurately reflects the content of the visit, no guarantee can be provided that every grammatical or spelling mistake has been or will be identified or corrected. Thank you for your understanding. CHRIS Rivera 09/06/23 1250 documented in this encounter [facility] [employer] 09-06-2023 Instructions CHRIS Rivera - 09/06/2023 10:30 AM EST Your urine today is suggestive of infection. I am going to send it out for culture. That will let us know for sure if it is infected and will let us know what type of bacteria. This is probably why you are having the odor in the urine. Start taking Bactrim. Take 1 pill twice a day for 7 days. This is an antibiotic. I will only call you if your urine is negative for infection or if I need to change antibiotics. If you do not hear from me, complete the full 7 day course. In regards to your urinary frequency and leaking at night, we could consider trying medication. In the past you took Myrbetriq but it was too expensive. Other options include anticholinergics such as VESIcare, oxybutynin, Toviaz, Detrol. If your symptoms do not bother you, you do not necessarily need to do anything about it though. The anticholinergics are usually more affordable than Myrbetriq. Typical side effects include dry mouth, dry eyes, and constipation. There is also some concern as to whether or not anticholinergics have anything to do with memory problems or dementia with long-term use. Let me know if you want to try 1 of these medications. Other options for frequency include Botox injections or nerve stimulation. We do need to check a follow-up urine specimen. I will get you an appointment with Dr. Pedersen in 3 months. If the urine starts to have an odor prior to that, let me know and I will have you stop at the lab to leave a specimen Ivy: [phone] (Ext [phone]) documented in this encounter [facility] Evaluation note Diagnosis Urinary incontinence, unspecified type- Primary Urinary tract infection without hematuria, site unspecified documented [facility] Diagnosis Encounter for wellness examination- Primary Controlled type 2 diabetes mellitus without complication, without long-term current use of insulin ([facility]) 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 Slow transit constipation Mixed hyperlipidemia ([facility]) Mixed hyperlipidemia Paroxysmal atrial fibrillation ([facility]) Atrial fibrillation Screening PSA (prostate specific antigen) Special screening for malignant neoplasm of prostate Psoriasis ([facility]) Other psoriasis Rheumatoid arthritis, involving unspecified site, unspecified whether rheumatoid factor present ([facility]) Encounter for immunization [facility] Diagnosis Confusion Unspecified psychosis [facility] Diagnosis Acute cystitis with hematuria- Primary documented in this encounter [facility]ructionsNot on filedocumented [facility] Purpose Family History No Family History Records FoundNo Family History Records FoundNo Family History Records FoundNo Family History Records Found Advance Directives No Advanced Directives Records FoundLatest Code Status on File Code Status Date Activated Date Inactivated Comments Full Code 08/06/2020 12:25 AM 08/06/2020 8:27 PM Latest Code Status on File Code Status Date Activated Date Inactivated Comments Full Code 08/06/2020 12:25 AM 08/06/2020 8:27 PM Reason for Referral Specialty Diagnoses / Procedures Referred By Contac t Referred To Contact Diagnoses Urinary incontinence, unspecified type Procedures Measure post void residual Ivy Parsons PA [address] [place] [address] Referral ID Status Reason Start Date Expiration Date V isits Requested Visits Authorized [id number] Pending Review 09/06/2023 09/05/2024 1 1 Additional Source Comments (unrecognized sect ion and content) No Status Records FoundNo Status Records FoundNo Status Records FoundNo Status Records Found INFORMATION SOURCE (unrecogn ized section and content) DATE CREATED AUTHOR 01/29/2022 [facility] dical Specialist DATE CREATED AUTHOR AUTHOR'S ORGANIZ ATION [facility]/10[facility]2023 [facility] DATE CREATED AUTHOR AUTHOR'S ORGANIZ ATION 09/10/2023 [facility] DATE CREATED AUTHOR AUTHOR'S ORGANIZ ATION 05/11/2024 [facility] dical Specialists EPIC Care Teams (unrecognized sec tion and content) 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 Relationship Specialty Start Date End Date Shelly Finch MD [address] [place] [address] PCP - General Family Medicine 10/19/22 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 Relationship Specialty Start Date End Date Shelly Finch MD [address] [place] [address] PCP - General Family Medicine 10/19/22 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 Relationship Specialty Start Date End Date Shelly Finch MD [address] [facility] [place] [address] PCP - General Family Medicine 01/16/23 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 Relationship Specialty Start Date End Date Shelly Finch MD [address] [facility] [place] [address] PCP - General Family Medicine 01/16/23 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 Relationship Specialty Start Date End Date Shelly Finch MD [address] [facility] [place] [address] PCP - General Family Medicine 01/16/23 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 This clinical summary was aggregated from multiple sources. Caution should be exercised in using it in the provision of clinical care. This summary normalizes information from multiple sources, and as a consequence, information in this document may materially change the coding, format and clinical context of patient data. In addition, data may be omitted in some cases. CLINICAL DECISIONS SHOULD BE BASED ON THE PRIMARY CLINICAL RECORDS. [facility] [employer] provides no warranty or guarantee of the accuracy or completeness of information in this document.
== END 2024-06-04 19:42 | disposition home or self-care (01) ==
LOC: SLEEP 19:41
PROVIDERS: PCP Nurse Practitioner Adult Health; Visit Provider Nurse Practitioner Adult Health
DX: G47.33 Obstructive sleep apnea (adult) (pediatric) (principal)
CPT/HCPCS: 95811

== ENCOUNTER 2024-07-02 19:48 | Outpatient (OUT) | payer MEDICARE, SELFPAY ==
--- OUTSIDE RECORDS SUMMARY | 2024-07-02 19:51 | XMS_ITS | CCD ---
Author Organization [facility] Inform ion Partnership [facility] Care Team Providers Care Cleaner Housekeeping Name Role Phone Shelly Finch MD Primary Care Provider IVY PARSONS I Attending Unavailable SHELLY FINCH Referring Unavailable SHELLY FINCH Primary Care Unavailable IVY PARSONS I Referring Unavailable SHELLY FINCH Primary Care Unavailable Shelly Finch MD Primary Care Provider Ba Watkins LPN Unavailable JOSE CASEY Attending Unavailable RUSLAN VILLATORO Attending Unavailab le HACKLUISBURGEDIERUSLAN Mukul Referring Unavailab le RUSLAN VILLATORO Attending Unavailab le HAEDIE LUKERICIA Mukul Attending Unavailab le SURYA SUNICIA Shay Attending Unavailable ESTEFANY PRADO Attending Unavailable WINDNAGEL EMILY C Attending Unavailable WINDNAGEL, EMILY C Referring Unavailable NELL BOYER Attending Unavailable WINDNAGEL EMILY C Attending Unavailable Allergies Allergy Classification Reported Allergen(s) Allergy Type Date of Onset Reaction(s) Facility (4 sources) Colchicine; Translations: [COLCHICINE] Drug Allergy 08-05-2020 [facility] (9 sources) Colchicine Drug Allergy 01-[facility]2023 [facility] Work Phone: Medications Current Medications Medication Drug Class(es) Dates Sig (Normalized) Sig (Original) acetaminophen 500 mg oral tablet (2 sources) Start: 08-06-2020 take 2 tablets by mouth every eight hours acetaminophen (TYLENOL) 500 mg tablet Take 2 tablets (1,000 mg total) by mouth every 8 (eight) hours. 30 tablet 0 08/06/2020 Active aspirin 81 mg delayed release oral tablet (9 sources) Platelet Aggregation Inhibitor, Nonsteroidal Anti-inflammatory Drug take 1 tablet by mouth in the morning aspirin 81 MG EC tablet Take 81 mg by mouth in the morning. Active cholecalciferol 0.125 mg oral tablet (2 sources) Vitamin D take 1 tablet by mouth in the morning cholecalciferol, vitamin D3, 5,000 units tablet Take 1 tablet (5,000 Units total) by mouth in the morning. 0 Active citalopram 20 mg oral tablet (2 sources) Serotonin Reuptake Inhibitor Start: 06-27-2024 End: 09-25-2024 take 1 tablet by mouth once daily citalopram (CeleXA) 20 MG tablet Indications: Mild dementia with agitation, unspecified dementia type (CMS/HCC) Take 1 tablet (20 mg) by mouth Daily 30 tablet 2 06/27/2024 09/25/2024 Active donepezil hydrochloride 10 mg oral tablet (5 sources) Start: 06-27-2024 End: 06-27-2025 take 1 tablet by mouth at bedtime donepezil (Aricept) 10 MG tablet Indications: Mild dementia with agitation, unspecified dementia type (CMS/HCC) Take 1 tablet (10 mg) by mouth at bedtime 90 tablet 3 06/27/2024 06/27/2025 Active Start: 04-03-2024 End: 04-03-2025 take 1 tablet by mouth at bedtime donepezil (Aricept) 5 MG tablet Indications: Mild cognitive impairment , Mild dementia with agitation, unspecified dementia type (CMS/HCC) Take 1 tablet (5 mg) by mouth at bedtime 90 tablet 2 04/03/2024 06/27/2024 Discontinued (Reorder) fluticasone propionate 0.05 mg/actuat metered dose nasal spray (11 sources) Corticosteroid Start: 02-20-2024 take 1 spray(s) nasal route in the morning fluticasone (Flonase) 50 MCG/ACT nasal spray Indications: Post-nasal drainage Administer 1 spray into each nostril in the morning. 16 g 11 02/20/2024 Active take 1 spray(s) nasa l route in the morning fluticasone (Flonase) 50 MCG/ACT nasal spray Administer 1 spray into affected nostril(s) in the morning. 0 Active take 1 spray(s) nasa l route in the morning fluticasone propionate (FLONASE) 50 mcg/actuation nasal spray Administer 1 spray into each nostril in the morning. 0 Active 1 ml guselkumab 100 mg/ml prefilled syringe (11 sources) Interleukin-23 Antagonist Start: 03-06-2023 Tremfya 100 MG/ML injection Indications: Psoriasis vulgaris (CMS/HCC) INJECT 100MG UNDER THE SKIN AT WEEK 0, WEEK 4, AND EVERY 8 WEEKS THEREAFTER 0.28 mL 03/06/2023 Active Start: 11-04-2022 guselkumab (TR EMFYA) 100 mg/mL syringe 1 mL Subcutaneous at week , week 4, and every 8 weeks thereafter 0 11/04/2022 Active ammonium lactate 120 mg/ml topical lotion (7 sources) ammonium lactate (Lac-Hydrin) 12 % lotion 1 Application every 12 (twelve) hours Active lidocaine 0.05 mg/mg medicated patch (2 [...] oral capsule (1 source) Nitrofuran Antibacterial Start: 10-12-19 End: 10-19-19 take 1 capsule by mouth in the morning nitrofurantoin, macrocrystal-monohydr ate, (Macrobid) 100 MG capsule Indications: Acute cystitis [...] Active rosuvastatin calcium 40 mg oral tablet (11 sources) HMG-CoA Reductase Inhibitor Start: 05-09-20 take 1 tablet by mouth once daily rosuvastatin (Crestor) 40 MG tablet Indications: Mixed hyperlipidemia (CMS/HCC) TAKE 1 TABLET BY MOUTH DAILY AT THE SAME TIME EACH DAY 90 tablet 1 05/09/2024 Active Start: 10-11-2023 End: 01-09-2024 take 1 tablet by mouth once daily rosuvastatin (Crestor) 40 MG tablet Indications: Mixed hyperlipidemia (CMS/HCC) Take 1 tablet (40 mg) by mouth 1 (one) time each day at the same time 90 tablet 0 10/11/2023 01/09/2024 Active sulfamethoxazole 800 mg / trimethoprim 160 mg oral tablet (1 source) Dihydrofolate Reductase Inhibitor Antibacterial, Sulfonamide Antimicrobial Start: 09-06-2023 End: 09-13-2023 take 1 tablet by mouth once in the morning sulfamethoxazole-trimethoprim (BACTRIM DS) 800-160 mg per tablet Take 1 tablet by mouth in the morning and 1 tablet before bedtime. Do all this for 7 days. 14 tablet 0 09/06/2023 09/13/2023 Active triamcinolone acetonide 0.76455 mg/mg topical ointment (6 sources) Corticosteroid triamcinolone (K enalog) 0.025 % ointment 1 application every 12 (twelve) hours. 0 Active Completed/Discontinued Medications Medication Drug Class(es) Dates Sig (Normalized) Sig (Original) Tapinarof (Vtama) 1 % cream (4 sources) End: 10-10-2023 Tapinarof (Vtama) 1 % cream Apply topically. 0 10/10/2023 Discontinued Tapinarof (Vtama ) 1 % cream Apply topically. 0 Active Problems Active Problems Problem Classification Problem Date Documented Da te Episodic/Chronic Cardiac dysrhythmias (11 sources) Paroxysmal atrial fibrillation; Translations: [Paroxysmal atrial fibrillation] Onset: 03-02-2023 03-02-2023 Chronic Delirium, dementia, and amnestic and other cognitive disorders (4 sources) Dementia; Translations: [Mild dementia with agitation, unspecified dementia type (CMS/HCC)] Onset: 06-27-2024 06-27-2024 Chronic Diabetes mellitus without complication (11 sources) Type 2 diabetes mellitus without complication; Translations: [Type 2 diabetes mellitus without complications] Onset: 03-02-2023 03-02-2023 Chronic Disorders of lipid metabolism (11 sources) Mixed hyperlipidemia; Translations: [Mixed hyperlipidemia] Onset: 03-02-2023 03-02-2023 Chronic Genitourinary symptoms and ill-defined conditions (16 sources) Urinary incontinence; Translations: [Unspecified urinary incontinence] Onset: 10-19-2022 03-08-2023 Chronic Immunizations and screening for infectious disease (4 sources) Patient encounter status; Translations: [Encounter for immunization] 10-10-2023 Episodic Other diseases of kidney and ureters (2 sources) Renal mass; Translations: [Other specified disorders of kidney and ureter] Onset: 10-19-2022 11-29-2022 Chronic Other inflammatory condition of skin (9 sources) Plaque psoriasis; Translations: [Psoriasis vulgaris] Onset: 03-02-2023 03-02-2023 Chronic Other inflammatory condition of skin (9 sources) Psoriasis vulgaris; Translations: [Psoriasis vulgaris] Onset: 03-02-2023 03-02-2023 Chronic Other inflammatory condition of skin (11 sources) Psoriasis; Translations: [Psoriasis, unspecified] Onset: 03-02-2023 03-02-2023 Chronic Other inflammatory condition of skin (9 sources) Psoriatic arthritis; Translations: [Arthropathic psoriasis, unspecified] Onset: 03-02-2023 03-02-2023 Chronic Residual codes; unclassified (4 sources) Obstructive sleep apnea syndrome; Translations: [Obstructive sleep apnea (adult) (pediatric)] Onset: 06-27-2024 06-27-2024 Chronic Residual codes; unclassified (1 source) Confusional state; Translations: [Disorientation, unspecified] 10-12-2023 Episodic Rheumatoid arthritis and related disease (11 sources) Rheumatoid arthritis; Translations: [Rheumatoid arthritis, unspecified] Onset: 03-02-2023 03-02-2023 Chronic Urinary tract infections (2 sources) Urinary tract infectious disease; Translations: [Urinary tract infection, site not specified] 09-06-2023 Episodic Past or Other Problems Problem Classification Problem Date Documented Da te Episodic/Chronic Genitourinary symptoms and ill-defined conditions (2 sources) Chase hematuria; Translations: [Gross hematuria] Onset: 12-08-2022 12-08-2022 Episodic Mood disorders (7 sources) Mood disorders Onset: 10-10-2023 10-10-2023 Other connective tissue disease (9 sources) Recurrent falls ; Translations: [Repeated falls] Onset: 03-02-2023 03-02-2023 Episodic Other fractures (2 sources) Closed fracture of multiple left ribs; Translations: [Multiple fractures of ribs, left side, initial encounter for closed fracture] Onset: 08-05-2020 08-05-2020 Episodic Other gastrointestinal disorders (11 sources) Slow transit constipation; Translations: [Slow transit [...] UA Negative Negative - 4(70) +++ mg/dL [facility] Blood, UA Positive Negative - 50 Mina/mcL [facility] Clarity, UA Cloudy [facility] re Color, UA [facility] Glucose, UA Negative Negative - 1999(110) ++++ mg/dL [facility] Interpretation and review of laboratory results Abnormal [facility] Ketones, UA Negative Negative - 160(16) ++++ mg/dL [facility] Leukocytes, UA Positive Negative - 500+++ Anna/mcL [facility] Nitrite, UA Positive Negative - Positive [facility] pH, UA 5.0 5 - [facility] Protein, UA Trace Negative - 1999(20) ++++ mg/dL [facility] Spec Grav, UA 1.025 1 - 1.03 [facility] Urobilinogen, UA 0.2 0.2 - 12 mg/dL [facility] - Chemistry and C hemistry - challengeon 10-11-2023 Albumin [Mass/Vol] 4.3 g/dL 3.6 - 5.1 g/dL [facility] Albumin/Globulin [Mass ratio] 1.5 {ratio} [facility] ALP [Catalytic activity/Vol] 68 U/L 35 - 144 U/L [facility] ALT [Catalytic activity/Vol] 13 U/L 9 - 46 U/L [facility] AST [Catalytic activity/Vol] 16 U/L 10 - 35 U/L [facility] Bilirubin [Mass/Vol] 0.6 mg/dL 0.2 - 1.2 mg/dL [facility] Calcium [Mass/Vol] 9.7 mg/dL 8.6 - 10. 3 mg/dL [facility] Chloride [Moles/Vol] 104 mmol/L 98 - 110 mmol/L [facility] CO2 [Moles/Vol] 25 mmol/L 20 - 32 mmol/L [facility] Creatinine [Mass/Vol] 1.05 mg/dL 0.70 - 1.28 mg/dL [facility] GFR/1.73 sq M.predicted among non-blacks MDRD (S/P/Bld) [Vol rate/Area] 74 mL/min/{1.73_m2} > OR = 60 mL/min/1.73m2 [facility] Globulin (S) [Mass/Vol] 2.9 g/dL [facility] Glucose [Mass/Vol] 84 mg/dL 65 - 99 mg/dL [facility] Comment on above: Fasting reference interval Potassium [Moles/Vol] 4.3 mmol/L 3.5 - 5.3 mmol/L [facility] Protein [Mass/Vol] 7.2 g/dL 6.1 - 8.1 g/dL [facility] Sodium [Moles/Vol] 141 mmol/L 135 - 146 mmol/L [facility] TSH Qn 1.79 m[IU]/[facility] Urea nitrogen [Mass/Vol] 15 mg/dL 7 - 25 mg/dL [facility] Urea nitrogen/Creatinine [Mass ratio] SEE NOTE: [facility] Comment on above: Not Reported: BUN an d Creatinine are within reference range. Prostate specific Ag [Mass/Vol] 4.77 ng/mL High < OR = 4.00 [facility] Comment on above: The total PSA value from this assay system is standardized against the WHO standard. The test result will be approximately 20% lower when compared to the equimolar-standardized total PSA (Kriss [place]). Comparison of serial PSA results should be [...] HbA1c (Bld) [Mass fraction] 5.7 % High [facility] Comment on above: For someone without known [...] compared to historical results. Lipid 1996 panelon Cholesterol [Mass/Vol] 216 mg/dL High [facility] - 200 mg/dL [facility] Cholesterol in HDL [Mass/Vol] 33 mg/dL Low > OR = 40 [facility] Cholesterol in LDL [Mass/Vol] 155 mg/dL High mg/dL (calc) [facility] Comment on above: Reference range: <10 0 Desirable range <100 mg/dL for primary prevention; <70 mg/dL for patients with CHD or diabetic patients with > or = 2 CHD risk factors. LDL-C is now calculated using the Luis-Ashish calculation, which is a validated novel method providing better accuracy than the Friedewald equation in the estimation of LDL-C. Luis SS et al. RICCO. 2013;310(19): 3580-0950 (http://education.[employer]/faq/PIP116) Cholesterol non HDL [Mass/Vol] 183 mg/dL High [facility] Comment on above: For patients with di abetes plus 1 major ASCVD risk factor, treating to a non-HDL-C goal of <100 mg/dL (LDL-C of <70 mg/dL) is considered a therapeutic option. Cholesterol.total/Ch olesterol in HDL [Mass ratio] 6.5 {ratio} High [facility] Triglyceride [Mass/Vol] 149 mg/dL [facility] - 150 mg/dL [facility] Microalbumin/Creatinine rati o panel (U)on 10-11-2023 Albumin DL <= 20 mg/L (U) [Mass/Vol] 2.1 mg/dL See Note: [facility] are Comment on above: Reference Range: Reference Range Not established Albumin/Creatinine (U) [Mass ratio] 13 [facility] Comment on above: The ADA defines abnormalities [...] [Mass/Vol] 157 mg/dL 20 - 320 mg/dL [facility] SPLIT 10/10/2023 FROM [id number] DEMANDIT Organization Information Site ID: QPT Name: [facility] Address: [address] [place] [address], [address] [place] [address] Director: Charlie Wilde MD [facility] [employer] [facility] [employer] No Panel Informationon 10-11 Interpretation and review of laboratory results Abnormal [facility] PATIENT UNABLE TO VOID; ADVISED TO RETURN FOR COLLECTION. DEMANDIT Organization Information Site ID: QPT Name: [id number] [facility] Address: [address] [place] [address], [address] [place] [address] Director: Charlie Wilde MD [facility] [employer] e POCT Urinalysis Auto, W/O Mi croscopyon 09-06-2023 External Poct Urine Blood Negative [facility] External Poct Urine Glucose Negative [facility] External Poct Urine Ketones Negative [facility] External Poct Urine Leukocyte Esterase Moderate [facility] External Poct Urine Nitrite Positive [facility] External Poct Urine Ph 7.0 [facility] External Poct Urine Protein Trace [facility] [address] URINE CULTUREon 09-06-2023 Bacteria identified Cx Nom [...] TOBRAMYCIN S <=1 F TRIMETH/SULFAMETHOXA ZOLE S <=1/19 F Susceptible [facility] Comment on above: Performed By: #### 6 30-4 #### [facility] ([id number]) [address] [place] [address] Microalbumin (with Creat)on 01-27-2022 mALB <1.2 Low [facility] [employer] Comment on above: Result Comment: Unab le to calculate mALB/Crea ratio, mALB is <1.2 mg/dL mALB reference range not established. Performed By: #### m ALBC #### [facility] [address], [place] [id number] UCREA 34 mg/dL Low 39-259 [facility] [employer] Comment on above: Performed By: #### m ALBC #### [facility] [address], [place] [id number] Vital Signs Date Time Vital Sign Value Performing Clinician Leanna dunaway 06-27-2024 08:22-0400 Body height 177.8 cm Emily Sun [employer] Work Phone: [facility] 06-27-2024 08:22-0400 Body mass index (BMI) [Ratio] 37.74 kg/m2 Emily Sun [employer] Work Phone: [facility] 06-27-2024 08:22-0400 Body weight 119.3 kg Emily Sun [employer] Work Phone: [facility] 06-27-2024 08:22-0400 Diastolic blood pressure 80 mm[Hg] Emily Pulliamgel [employer] Work Phone: [facility] 06-27-2024 08:22-0400 Heart rate 92 /min Emily Sun [employer] Work Phone: [facility] 06-27-2024 08:22-0400 Systolic blood pressure 165 mm[Hg] Emilystacy Pulliamgel [employer] Work Phone: [facility] 10-10-2023 12:26-0500 Diastolic blood pressure 68 mm[Hg] Jose Casey [employer] Work Phone: [facility] 10-10-2023 12:26-0500 Systolic blood pressure 140 mm[Hg] Jose Casey [employer] Work Phone: [facility] 10-10-2023 11:59-0500 Body height 175.3 cm Jose Casey [employer] Work Phone: [facility] 10-10-2023 11:59-0500 Body mass index (BMI) [Ratio] 38.16 kg/m2 Jose Casey [employer] Work Phone: [facility] 10-10-2023 11:59-0500 Body weight 117.21 kg Jose Casey [employer] Work Phone: [facility] 10-10-2023 11:59-0500 Heart rate 88 /min Jose Casey [employer] Work Phone: [facility] 10-10-2023 11:59-0500 SaO2% (BldA) [Mass fraction] 96 % Jose Casey [employer] Work Phone: [facility] 09-06-2023 10:22-0500 Body height 177.8 cm Ivy PEREZ Work Phone: [facility] 09-06-2023 10:22-0500 Body mass index (BMI) [Ratio] 34.87 kg/m2 Ivy PEREZ Work Phone: [facility] 09-06-2023 10:22-0500 Body weight 110.22 kg Ivy PEREZ Work Phone: [facility] 09-06-2023 10:22-0500 Diastolic blood pressure 75 mm[Hg] Ivy PEREZ Work Phone: [facility] 09-06-2023 10:22-0500 Heart rate 75 /min Ivy PEREZ Work Phone: [facility] 09-06-2023 10:22-0500 Systolic blood pressure 157 mm[Hg] Ivy PEREZ Work Phone: [facility] Encounters Encounter Date Encounter Type Care Provider Facility Start: 06-27-2024 End: 06-27-2024 Bamboo flowsheet Emily C Windnagel [employer] Work Phone: [facility] Start: 06-27-2024 End: 06-27-2024 Bamboo flowsheet Emily C Windnagel [employer] Work Phone: [facility] Start: 06-27-2024 End: 06-27-2024 Office outpatient visit 25 minutes Emily C Windnagel [employer] Work Phone: [facility] Comment on above: Mild dementia with a gitation, unspecified dementia type (CMS/HCC) (Primary Dx); MAXWELL (obstructive sleep apnea) Start: 06-27-2024 End: 06-27-2024 ambulatory EMILY C WINDNAGEL Not Available Start: 05-09-2024 End: 05-09-2024 ambulatory NELL Gilman FELTER Not Available Start: 04-15-2024 End: 04-15-2024 ambulatory EMILY C WINDNAGEL Not Available Start: 04-03-2024 End: 04-03-2024 ambulatory EMILY C WINDNAGEL Not Available Start: 04-02-2024 End: 04-02-2024 ambulatory JOSE MCDONALDPFER Not Available Start: 03-11-2024 End: 03-11-2024 ambulatory ESTEFANY ELISTEN Not Available Start: 03-07-2024 End: 03-07-2024 ambulatory EMILY C WINDNAGEL Not Available Start: 02-20-2024 End: 02-20-2024 ambulatory RUSLAN A HACKENBURG Not Available Start: 01-12-2024 End: 01-12-2024 ambulatory RUSLAN A HACKENBURG Not Available Start: 01-05-2024 End: 01-05-2024 ambulatory RUSLAN A HACKENBURG Not Available Start: 01-02-2024 End: 01-02-2024 ambulatory RUSLAN A HACKENBURG Not Available Start: 10-12-2023 End: 10-12-2023 Orders Only Ruslan A Hackenburg [employer] Work Phone: [facility] Comment on above: Acute cystitis with hematuria (Primary Dx) Start: 10-12-2023 End: 10-12-2023 Patient encounter procedure [facility] Comment on above: Confusion Start: 10-10-2023 Bamboo flowsheet Jose Casey [employer] Work Phone: [facility] Start: 10-10-2023 Bamboo flowsheet Jose Casey [employer] Work Phone: [facility] Start: 10-10-2023 End: 10-10-2023 Patient encounter procedure Jose Casey [employer] Work Phone: [facility] Comment on above: Encounter for [facility] examination (Primary Dx); Controlled type 2 diabetes mellitus without complication, without long-term current use of insulin (CMS/HCC); Functional urinary incontinence; Constipation by delayed colonic transit; Mixed hyperlipidemia (CMS/HCC); Paroxysmal atrial fibrillation (CMS/HCC); Screening PSA (prostate specific antigen); Psoriasis (CMS/HCC); Rheumatoid arthritis, involving unspecified site, unspecified whether rheumatoid factor present (CMS/HCC); Encounter for immunization Start: 10-10-2023 End: 10-10-2023 Patient encounter status Jose Mcdonaldmaddiericha [employer] Work Phone: [facility] Work Phone: Start: 10-10-2023 End: 10-10-2023 ambulatory JOSE CASEY Not Available Start: 10-09-2023 Chart abstracting Jose Dallin jo [employer] Work Phone: [facility] Start: 09-06-2023 End: 09-07-2023 ambulatory IVY PARSONS [facility] Start: 09-06-2023 End: 09-06-2023 ambulatory IVY PARSONS [facility] Start: 09-06-2023 End: 09-06-2023 Office outpatient visit 25 minutes Ivy PEREZ Work Phone: [facility] Comment on above: Urinary incontinence , unspecified type (Primary Dx); Urinary tract infection without hematuria, site unspecified Start: 09-05-2023 Orders Only Ivy PEREZ Work Phone: [facility] Start: 08-15-2023 End: 08-15-2023 ambulatory JOSE CASEY Not Available Procedures Date Procedure Procedure Detail Performing Clinician Start: 10-12-2023 Urnls dip stick/tabl et rgnt non-auto w/o micrscp Ruslan Villatoro [employer] Work Phone: Start: 10-10-2023 Urine albumin quantitative Jose Casey [employer] Work Phone: Start: 10-10-2023 End: 10-10-2023 Comprehensive metabolic panel Jose Mcdonaldmarc [employer] Work Phone: Start: 10-10-2023 Lipid panel Jose chaudhry [employer] Work Phone: Start: 10-10-2023 TSH W/REFLEX TO FT4 Luisa Mcdonaldmarc [employer] Work Phone: Start: 09-06-2023 Follow-up visit Follow-up ZBIGNIEW PARSONS Start: 09-06-2023 Urnls dip stick/tabl et rgnt auto w/o microscopy Ivy Parsons PA Work Phone: Start: 10-18-2012 Colonoscopy Jose Mcdonaldmaddie chaudhry [employer] Work Phone: Plan of Treatment Date Care Activity Detail Author Start: 01-01-2025 Urine screening for protein Diabetes: Urine Protein Screening [facility] Start: 12-21-2024 Screening for malign ant neoplasm of colon [facility] Start: 10-10-2024 Medicare Annual Well ness (AWV) Medicare Annual Wellness (AWV) [facility] Start: 10-10-2024 Urine screening for protein Diabetes: Urine Protein Screening [facility] Start: 09-18-2024 End: 09-18-2024 Patient encounter procedure 09/18/2024 9:20 AM EST Office Visit [facility] [address] [place] [id number] Kristin Baldwin PA [address] [place] [address] [facility] [place] [facility] Start: 09-06-2024 Adult BMI Screening Adult BMI Screen ing [facility] Start: 09-06-2024 Tobacco Screening Tobacco Screening [facility] Start: 06-27-2024 End: 06-27-2024 Patient encounter procedure 06/27/2024 8:20 AM EDT Office Visit [facility] [place] [facility] [address] [place] [id number] Emily Sun, [employer] [address] [place] [address] Arrived [facility] Comment on above: Arrived Start: 04-28-2024 Influenza vaccination Influenza Vacc ine (#1) [facility] [facility] Start: 04-13-2024 Hemoglobin A1c measurement Diabetes: Hemoglobin A1C [facility] Start: 03-08-2024 Adult BMI Screening Adult BMI Screen ing [facility] Start: 03-08-2024 Tobacco Screening Tobacco Screening [facility] Start: 03-07-2024 End: 03-07-2024 Patient encounter procedure 03/07/2024 9:20 AM EDT Office Visit [facility] [address] [place] [id number] Nell Boyer, INFORMATION DIRECTOR-SYNTHETIC FILAMENT EXTRUDER [address] [place] [address] [facility] Start: 01-08-2024 Hemoglobin A1c measurement Diabetes: Hemoglobin A1C [facility] Start: 12-05-2023 End: 12-05-2023 Patient encounter procedure 12/05/2023 11:15 AM EDT Office Visit [facility] [address] [place] [address] [place] [address] Jarod Pedersen MD [facility] [place] [address] [facility] Start: 10-12-2023 End: 10-12-2024 Bacteria identified in Urine by Culture Urine culture (clean catch) Microbiology Routine Confusion Expected: 10/12/2023 (Approximate), Expires: 10/12/2024 [facility] Work Phone: Comment on above: Expected: 10/12/2023 (Approximate), Expires: 10/12/2024 Start: 10-10-2023 End: 10-10-2023 Patient encounter procedure [facility] Comment on above: Arrived Start: 09-06-2023 End: 09-06-2023 Patient encounter procedure 09/06/2023 10:30 AM EST Office Visit [facility] [address] [place] [address] [address] [facility] [place] [address] Ivy Parsons I, PA [facility] [place] [address] [facility] Start: 04-28-2023 COVID-19 Vaccine () COVID-19 Vaccine () [facility] Start: 04-28-2023 Influenza vaccination [facility] Start: 01-27-2023 Urine screening for protein Diabetes: Urine Protein Screening [facility] Start: 11-30-2022 Hemoglobin A1c measurement Diabetes: Hemoglobin A1C [facility] Start: 10-18-2022 Screening for malign ant neoplasm of colon [facility] Start: 2013 Fall Risk Screening Fall Risk Screen ing [facility] Start: 1998 Administration of varicella zoster vaccine Zoster (Shingles) Vaccine (1 of 2) [facility] Start: 1967 DTaP,Tdap and Td Vac cines (1 - Tdap) DTaP,Tdap and Td Vaccines (1 - Tdap) [facility] Start: 1966 Adult BMI Follow Up Plan Adult BMI Follow Up Plan [facility] Start: 1960 Depression Screening Depression Scre ening [facility] Start: 1958 Glaucoma screening Diabetes: R etinopathy Screening [facility] Start: 1954 Pneumococcal Vaccine : 65+ Years (1 - PCV) Pneumococcal Vaccine: 65+ Years (1 - PCV) [facility] Start: 1948 Medicare Annual Well ness (AWV) Medicare Annual Wellness (AWV) [facility] Start: 1948 Medicare Annual Well ness Visit Medicare Annual Wellness Visit [facility] Start: 1948 Screening for malign ant neoplasm of colon [facility] End: 09-05-2024 Bacteria identified in Urine by Culture Urine Culture Microbiology Routine Urinary incontinence, unspecified type 1 Occurrences starting 09/06/2023 until 09/05/2024 [facility] Work Phone: Comment on above: 1 Occurrences starti ng 09/06/2023 until 09/05/2024 Bacteria identified in Urine by Culture Urine Culture Microbiology Routine Urinary incontinence, unspecified type 09/06/2023 7:[address] [facility] Measure post void residual Measure post void residual Nursing Routine Urinary incontinence, unspecified type 09/06/2023 10:[address] [facility] Immunizations Immunization Date Immunization Notes Care Provider Snow mccoy 10-10-2023 influenza, high dose seasonal, preservative-free Jose Casey [employer] Work Phone: [facility] 10-10-2023 Pneumococcal Conjuga te PCV 20 Joseanne Casey [employer] Work Phone: [facility] 10-10-2023 influenza virus vaccine, unspecified formulation Emily Snu [employer] Work Phone: [facility] 09-01-2022 influenza, injectabl e, quadrivalent, preservative free Jose Casey [employer] Work Phone: [facility] 09-01-2022 influenza virus vaccine, unspecified formulation Ivy PEREZ Work Phone: [facility] 01-18-2021 COVID-19, mRNA, LNP- S, PF, 100mcg/0.5mL Dose Ivy PEREZ Work Phone: [facility] 12-21-2020 COVID-19, mRNA, LNP- S, PF, 100mcg/0.5mL Dose Ivy PEREZ Work Phone: [facility] 06-03-2009 influenza virus vaccine, whole virus Jose Carmela [employer] Work Phone: [facility] Payers Date Payer Category Payer Medicare [id number] 2017 Medicare (Managed Care) CELINA ROSALES [facility] [id number] 2017 Medicare [id number] 1950 Unknown [id number] 2.840.1.804102.3.579 .2.1286 1948 Unknown [id number] 2.840.1.649000.3.579 .2.128 1948 Unknown [id number] 2.840.1.360018.3.579 .2.1258 1948 Unknown [id number] 2.840.1.878915.3.579 .2.1258 1948 Unknown [id number] 2.840.1.190974.3.579 .2.1259 1948 Unknown [id number] 2.16840.1.712540.3.579 .2.1258 1948 Unknown [id number] 2.840.1.839022.3.579 .2.1259 1948 Unknown [id number] 2.840.1.453087.3.579 .2.125 1948 Unknown [id number] 2.16.840.1.471603.3.579 .2.9 1948 Unknown [id number] 2.16.840.1.059876.3.579 .2.9 1948 Unknown [id number] 2.16.840.1.262252.3.579 .2.9 1948 Unknown [id number] 2.16.840.1.447628.3.579 .2.9 1948 Unknown [id number] 2.16.840.1.286021.3.579 .2.1258 1948 Unknown [id number] 2.16.840.1.276987.3.579 .2.1258 1948 Unknown [id number] 2.16.840.1.364710.3.579 .2.1258 1948 Unknown [id number] 2.16.840.1.172396.3.579 .2.9 Social History Date Type Detail Facility Start: 10-19-2022 End: 03-03-2023 Tobacco smoking status NHIS Ex-smoker [facility] History of tobacco use Current smoker [facility] Start: 10-19-2022 Tobacco use and exposure Smokeless tobacco non-user [facility] Start: 03-08-2023 End: 09-06-2023 Alcohol intake Current drinker of alcohol (finding) [facility] Start: 03-08-2023 End: 01-02-2024 History of Social function [facility] Start: 03-08-2023 End: 01-02-[address] [facility] Housing Instability Unknown [facility] Start: 1950 Sex Assigned At Not on file [facility] History of tobacco use [facility]igarette [facility] Start: 03-06-2023 End: 10-10-2023 Alcohol intake Lifetime non-drinker (finding) [facility] Start: 03-03-2023 Alcohol Comment Caffeine: 1-2 cups/day coffee [facility] Start: 05-09-2024 End: 06-27-2024 Alcoholic beverage intake Ex-drinker (finding) [facility] Start: 1950 Sex assigned at Male [facility] Start: 01-02-2024 Gender identity Identifies as male gender (finding) [facility] Start: 01-02-2024 Sexual orientation Heterosexual (finding) [facility] Goals Date Patient Goal Desired Activity [...] a urine sample. documented in this encounter [facility] 10-10-2023 History of Presen t illness Narrative Justin Fajardo is a 73 y.o. male presents [...] independence. Living will and durable power of immigration attorney reviewed. Updated patient problem list and reviewed all current medications with patient. Given time to ask questions. Controlled type 2 diabetes mellitus without complication, without long-term current use of insulin (CMS/[facility]) - Lipid panel; Future - Comprehensive metabolic [...] by delayed colonic transit -Stable Mixed hyperlipidemia ([facility]/HCC) - Lipid panel; Future -Check lipid panel Paroxysmal atrial fibrillation ([facility]/HCC) -Stable. On xarelto Screening PSA (prostate specific antigen) - PSA; Future Psoriasis ([facility]) -Followed by dermatology Rheumatoid arthritis, involving unspecified site, unspecified whether rheumatoid factor present ([facility]) -Hx. Of this, but stable, on no meds. Encounter for immunization - Flu vaccine, high dose seasonal, PF ([id number]) (Fluzone High Dose) - Pneumococcal conjugate vaccine 20-valent IM documented in this encounter [facility] 09-06-2023 Evaluation + Plan note Associated Problem(s): [...] recheck his urine and determine further management [facility] 09-06-2023 Miscellaneous Notes Associated Problem(s): [...] determine further management documented in this encounter [facility] 09-06-2023 History of Presen t illness Narrative Images from the original note were not included. [address] [place] [id number] Patient: Justin Fajardo Date of : 1950 Encounter Date: [...] cc Summary of old records: Notes from [place] 03/08/2023: He is status post cystoscopy 01/24/2023 [...] 01/24/2023 Performed by Jarod Pedersen MD at [facility] History reviewed. No pertinent family history. [...] note and vitals reviewed. Assessment and Plan: Justin was seen today for follow-up. Diagnoses and [...] Rivera 09/06/23 1250 documented in this encounter [facility] [employer] 09-06-2023 Instructions CHRIS Rivera - 09/06/2023 10:30 [...] the lab to leave a specimen Ivy: [phone] (Ext [id number]) documented in this encounter [facility] Evaluation note Diagnosis Urinary incontinence, unspecified type- Primary Urinary tract infection without hematuria, site unspecified documented [facility] this [facility]* Diagnosis Encounter for wellness examination- Primary Controlled type 2 diabetes mellitus without complication, without long-term current use of insulin (CMS/HCC) 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 Slow transit constipation Mixed hyperlipidemia (CMS/HCC) Mixed hyperlipidemia Paroxysmal atrial fibrillation (CMS/HCC) Atrial fibrillation Screening PSA (prostate specific antigen) Special screening for malignant neoplasm of prostate Psoriasis ([facility]/HCC) Other psoriasis Rheumatoid arthritis, involving unspecified site, unspecified whether rheumatoid factor present ([facility]) Encounter for immunization documented in this encounter [facility]* Diagnosis Confusion Unspecified psychosis [facility] Diagnosis Acute cystitis with hematuria- Primary documented in this encounter [facility]* Diagnosis Mild dementia with agitation, unspecified dementia type ([facility]/HCC)- Primary MAXWELL (obstructive sleep apnea) Obstructive sleep apnea (adult) (pediatric) documented in this encounter [facility] HealthcareInstructionsNot on filedocumented [facility] Purpose Family History No [...] Referral Specialty Diagnoses / Procedures Referred By Filipe castellanos Referred To Contact Diagnoses Urinary incontinence, unspecified type Procedures Measure post void residual Ivy Parsons PA [address] [place] [address] Referral ID Status Reason Start Date Expiration Date V isits Requested Visits Authorized [id number] Pending Review 09/06/2023 09/05/2024 1 1 Additional Source Comments (unrecognized sect ion and content) No Status Records FoundNo Status Records FoundNo Status Records FoundNo Status Records Found INFORMATION SOURCE (unrecogn ized section and content) DATE CREATED AUTHOR 01/29/2022 [facility] dical Specialist DATE CREATED AUTHOR AUTHOR'S ORGANIZ ATION 09/10/2023 [facility] Ambulatory [facility] DATE CREATED AUTHOR AUTHOR'S ORGANIZ ATION 09/10/2023 [facility] DATE CREATED AUTHOR AUTHOR'S ORGANIZ ATION 06/28/2024 [facility] dical Specialists [employer] Care Teams (unrecognized sec tion and content) [employer] Relationship Specialty Start Date End Date Shelly Finch MD [address] [place] [address] PCP - General Family Medicine 10/19/22 [employer] Relationship Specialty Start Date End Date Shelly Finch MD [address] [place] [address] PCP - General Family Medicine 10/19/22 [employer] Relationship Specialty Start Date End Date Shelly Finch MD [address] [place] [address] PCP - General Family Medicine 01/16/23 [employer] Relationship Specialty Start Date End Date Shelly Finch MD [address] [place] [address] PCP - General Family Medicine 01/16/23 [employer] Relationship Specialty Start Date End Date Shelly Finch MD [address] [place] [address] PCP - General Family Medicine 01/16/23 [employer] Relationship Specialty Start Date End Date Shelly Finch MD [address] [place] [address] PCP - General Family Medicine 01/16/23 [employer] Relationship Specialty Start Date End Date Shelly Finch MD [address] [place] [address] PCP - General Family Medicine 01/16/23 [employer] Relationship Specialty Start Date End Date Shelly Finch MD [address] [place] [address] PCP - General Family Medicine 01/16/23 Ba Watkins LPN [address] [place] [address] Licensed Practical Nurse Family Medicine 04/15/24 [employer] Relationship Specialty Start Date End Date Shelly Finch MD [address] [place] [address] PCP - General Family Medicine 01/16/23 Ba Watkins LPN [address] [place] [address], [place] [address] Licensed Practical Nurse Family Medicine 04/15/24 Reason for Visit (unrecogniz ed section and [...] BE BASED ON THE PRIMARY CLINICAL RECORDS. [employer] [facility]. provides no warranty or guarantee of the accuracy or completeness of information in this document.
== END 2024-07-02 19:49 | disposition home or self-care (01) ==
LOC: SLEEP 19:48
PROVIDERS: PCP Nurse Practitioner Adult Health; Visit Provider Psychiatry & Neurology Neurology
DX: G47.33 Obstructive sleep apnea (adult) (pediatric) (principal); G47.31 Primary central sleep apnea
CPT/HCPCS: 95811